=== PATIENT | female | born 1985 ===

== ENCOUNTER 2016-12-19 21:11 | Emergency (ER) | payer OTHER ==
[2016-12-19 21:16] VITALS: BP 126/84; PULSE 80; RESP 16; TEMP 98.3; O2SAT 100
[2016-12-19] MEDS ORDERED: Oxycodone/Acetaminophen 5/325 mg Tab PO STA (21:34)
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
== END 2016-12-19 22:37 | disposition home or self-care (01) ==
LOC: H.ER 21:11
DX: M54.9 Dorsalgia, unspecified (principal); R51 Headache; V43.52XA Car driver injured in collision with other type car in traffic accident, initial encounter; Y92.410 Unspecified street and highway as the place of occurrence of the external cause